=== PATIENT | female | born 1990 | race Caucasian/White ===

== ENCOUNTER 2018-08-16 15:07 | Emergency (ER) | payer SELFPAY ==
[2018-08-16 15:07] VITALS: BP 128/76; BP 139/79; PULSE 110; PULSE 97; RESP 16; RESP 18; TEMP 36.9; O2SAT 94; O2SAT 99; BMI 33.6
--- NOTE | 2018-08-16 15:19 | ED.VISSUMM ---
- ER Visit Summary Date of Service: 08/16/18 Chief Complaint: Abdominal pain and right ear pain History of Present Illness: The patient is a 28 F with right ear pain for the past couple of days. She had some mild sinus drainage. This morning she had nausea and vomiting followed by a rather severe epigastric pain. She had nausea, vomiting, and diarrhea all day today. She had some chills but no measured fever. Patient did have a cholecystectomy 2 years ago. She denies history of pancreatitis and rarely drinks alcohol, none recently. Physical Examination: Vital signs significant only for heart rate of 110. Patient's sitting upright in bed. She is uncomfortable but in no acute distress. Head neck examination reveals moist mucous membranes. Right external ear canal is erythematous and edematous consistent with otitis externa. Left ear canal is clear. Heart is regular rate and rhythm. Lungs sounds are clear. Abdomen is soft with tenderness in the epigastric region. No guarding or rebound. Hypoactive bowel sounds are noted throughout. Test Results: CBC was a white count of 14.5 with 94% neutrophils. Chemistry studies unremarkable. LFTs and lipase normal. test negative. CT abdomen pelvis with contrast shows a right ovarian cyst. Noninflamed appendix is noted. There is a very small appendicolith, but acute appendicitis is not suspected. Emergency Department Course and Treatment: Patient was given morphine, Zofran, IV fluids, and neomycin eardrops for her otitis externa. She was redosed with morphine and Zofran after repeat exam noted pain to be improving. Pain at this time remains all to be in the upper abdomen and she has no tenderness in the right lower quadrant. Patient be treated with Bentyl, Phenergan, and neomycin eardrops. Treatment Plan: [] Disposition: Discharge Impression: 1. Gastroenteritis 2. Right otitis externa This note was generated with [employer] dictation software. It may contain incorrect words, spelling, and punctuation that were not noted in review of the chart prior to signing ED Disposition - Plan for ED Patient: Chief Complaint: Abd Pain Referrals: Nathan Castellano MD [STAFF PHYSICIAN] -
[2018-08-16] MEDS: Ondansetron 4 MG/2 ML Vial IV ×2 (15:32→17:20)
[2018-08-16] MEDS: Morphine 4 MG/ML Syringe IV ×2 (15:32→17:20)
[2018-08-16] MEDS: 0.9% Normal Saline 1,000 ML 150 ML IV (15:32)
[2018-08-16] MEDS: Neomycin Sulfate/Polymyxin/Hc Susp 10 ML Bottle 4 DRP OTIC (15:56)
[2018-08-16 16:15] LABS: AST(SGOT) 18 U/L (15-37); Alanine Aminotransfer ALT/SGPT 29 U/L (13-56); Alkaline Phosphatase 90 U/L (45-117); Anion Gap 14 (5-15); BUN 11 mg/dL (7-18); BUN/Creat Ratio 12.3 RATIO (10-20); Bilirubin, Direct 0.25 mg/dL (0.00-0.30); Calcium,Total 9.3 mg/dL (8.5-10.1); Chloride 105 mmol/L (98-107); EST Glomerular Filtration Rate 80 mL/min (>60); Est Glom Filt Rate - Afr Amer 97 mL/min (>60); Estimated Creatinine Clearance 77.67 ml/min; Globulin 4.3 g/dL (2.2-4.2); Glucose 108 mg/dL (74-106); Lipase 72 U/L (73-393); Potassium 3.8 mmol/L (3.5-5.1); Protein, Total 8.3 g/dL (6.4-8.2); Sodium Level 139 mmol/L (136-145)
[2018-08-16 16:24] LABS: Absolute Lymphocyte Count 0.37 X10^3/ul (0.83-4.51); Absolute Neutrophil Count 13.7 X10^3/uL (2.0-7.7); Basophil# 0.01 X10^3/uL; Basophil% 0.1 % (0-1); Eosinophil# 0.01 X10^3/uL; Eosinophils% 0.1 % (0-5); Hematocrit 43.7 % (37-47); Hemoglobin 14.2 g/dl (12.0-15.0); Lymphocyte # 0.37 X10^3/ul (4.0); Lymphocyte % 2.5 % (19-41); Mean Corp Hgb Conc 32.5 g/gl (32-36); Mean Corpuscular Volume 86.2 fL (81-99); Mean Platelet Vol. 10.1 fl (6.2-12.0); Monocyte# 0.42 X10^3/uL; Monocyte% 2.9 % (0-10); Neutrophil % 94.2 % (47-70); Platelet Count 411 K/mm3 (150-450); RBC Distribution Width CV 13.1 % (11.6-14.6); RBC Distribution Width SD 40.3 fl (35.1-43.9); Red Blood Count 5.07 M/mm3 (4.2-5.4); White Blood Count 14.5 K/mm3 (4.4-11.0)
[2018-08-16 16:27] LABS: Pregnancy, Serum, hCG Quali. NEGATIVE Negative (0-9 Nonpreg)
[2018-08-16 16:37] LABS: Differential Indicated SCAN CRITERIA MET; POSITIVE COUNT NO; POSITIVE DIFFERENTIAL YES; POSITIVE MORPHOLOGY NO
--- NOTE | 2018-08-16 17:15 | CT_ITS ---
STUDY: CT ABDOMEN AND PELVIS WITH CONTRAST REASON FOR EXAM: Female, 28 years old. Elevated white count pain in abdomen RADIATION DOSAGE (If Supplied By Facility): CTDIvol = ( 14.11 ) mGy, DLP = ( 1180.89 ) mGycm TECHNIQUE: Transaxial images were obtained from the dome of the diaphragm to the symphysis pubis with oral contrast. 100ML ml of Isovue 300 contrast was administered. Sagittal and coronal images were reconstructed. Individualized dose optimization techniques were used for this CT. COMPARISON: January 15, 2017 CT scan abdomen and pelvis FINDINGS: The visualized lung bases are unremarkable. The visualized portions of the heart are within normal limits. Normal liver. There is non-visualization of the gallbladder, which may be secondary to either contraction or a prior cholecystectomy. There is borderline splenic enlargement or Normal pancreas. Normal bilateral adrenal glands. Normal right kidney. Normal left kidney. There is contrast in the stomach. Normal small intestine. Normal colon. There is a punctate calcific density within the normal size appendix. The width of the appendix is 3.4 mm which is within normal limits. This is newly visualized since prior study. The fluid that was seen in the right lower quadrant is smaller. Normal abdominal aorta. Normal inferior vena cava. There few nonspecific pericolonic lymph nodes. Normal urinary bladder. Normal visualized uterus. There is a small right ovarian cyst measuring 1.3 cm there is a lower uterine segment/cervical cystic structure measuring 1.1 cm stable since prior study suggesting a nabothian cyst. Normal abdominal wall. There are diffuse degenerative changes of the visualized lumbar spine.There is mild degenerative change in the thoracolumbar spine there is a broad disc bulge at L5-S1 with mild neural foramina narrowing. CT/Abdomen/Pelvis WITH Contrast IMPRESSION: Right ovarian cyst. Stable nabothian cysts. Could consider follow-up pelvic ultrasound. Nonvisualization of the gallbladder which may have been removed. Nonspecific bowel gas pattern. Noninflamed normal caliber appendix with a 1 mm appendicolith. Findings are doubtful for appendicitis. Hepatic steatosis. Electronically Signed: Nori Clark MD at 19:41 EST Tel , Service support ,
--- NOTE | 2018-08-16 19:17 | ED.RN ---
RECEIVED HANDOFF FROM KATHY.
[2018-08-16 19:20] VITALS: BP 119/67; PULSE 94; RESP 16; O2SAT 96
[2018-08-16] MEDS: proMETHazine 25 MG/ML Syringe 12.5 MG IV (19:29)
--- NOTE | 2018-08-16 20:51 | ED.DEP ---
ED Disposition - Plan for ED Patient: Disposition: Home or Assisted Living Chief Complaint: Abd Pain Instructions: ED Abdominal Pain Unkn Cause, ED Otitis Externa Prescriptions: Ondansetron [Zofran Odt] 4 mg PO Q8H PRN PRN #10 tablet PRN Reason: Nausea Dicyclomine HCl [Bentyl] 20 mg PO TIDAC PRN #20 capsule PRN Reason: Pain Referrals: Nathan Castellano MD [STAFF PHYSICIAN] - Additional Instructions: Use Neomycin ear drops to right ear. 4 drops 4x/day for 10 days.
[2018-08-16 21:03] VITALS: BP 124/78; PULSE 84; RESP 16; O2SAT 100
== END 2018-08-16 21:05 | disposition home or self-care (01) ==
PROVIDERS: Emergency Provider Emergency Medicine
DX: K52.9 Noninfective gastroenteritis and colitis, unspecified (principal); H60.91 Unspecified otitis externa, right ear; Z72.0 Tobacco use
CPT/HCPCS: 74177; 80048; 80076; 83690; 84703; 85025; 96361; 96374; 96375; 96376; 99283; J7030; J7040; Q9967; J2405

== ENCOUNTER 2019-05-23 08:31 | Emergency (ER) | payer SELFPAY ==
[2019-05-23 08:32] VITALS: BP 169/100; PULSE 124; RESP 20; TEMP 37.2; O2SAT 97; BMI 38.2
--- NOTE | 2019-05-23 08:34 | US_ITS ---
STUDY: SECOND AND THIRD TRIMESTER OBSTETRICAL ULTRASOUND - LIMITED REASON FOR EXAM: Female, 29 years old abnormal vaginal bleeding and a pelvic cramping. Patient is . LMP: January 12, 2019 PRIOR ULTRASOUND: Prior comparison studies are not available for review at this time. TECHNIQUE: Transabdominal and Transvaginal. Transvaginal imaging was performed to visualize the cervix. TECHNICAL QUALITY: Adequate. FINDINGS: There is a single intrauterine fetus. The fetus is in a cephalic presentation. There is demonstrated cardiac activity with a heart rate of 155 bpm. There is decreased amniotic fluid volume consistent with oligohydramnios. The largest amniotic fluid pocket measures 1.3 cm. The amniotic fluid index (SALBADOR) is 3.2 cm. The placenta is posterior in location and is not low lying. There are Grade 1 placental changes. The cervix measures greater than 3.5 cm in length. BIOMETRY: BPD: 3.8 cm: 17 weeks, 5 days HC: 15.0 cm: 18 weeks, 1 days AC: 13.1 cm: 18 weeks, 5 days FL: 3 cm: 19 weeks, 2 days Age by LMP: 18 weeks, 5 days. PAM by LMP: October 19, 2019. age by current US: 18 weeks, 4 days. PAM by current US: October 19, 2019. Estimated weight: 258 grams, +/- 38 grams, 51 percentile. Gender: Indeterminant US/OB Limited With Biometrics IMPRESSION: 1. Oligohydramnios. 2. Single living intrauterine gestation with estimated gestational age by size of 18 weeks 4 days. Electronically Signed: Shaista Zuniga MD at 11:16 EDT , Service support ,
--- NOTE | 2019-05-23 08:41 | ED.DCSUM_ITS ---
- ER Visit Summary Date of Service: 05/23/19 Chief Complaint: Vaginal bleeding, possible miscarriage History of Present Illness: The patient is a 29 F who presents with vaginal bleeding that began this morning. Patient states she was sitting on a couch when she felt some vaginal bleeding. Patient states it got progressively worse. Patient states her bleeding was very severe. Patient states she was having some cramping. Currently, patient admits to some mild cramping. Patient states she is approximately 19 weeks . Patient follows with [facility] ADJUNCT PROFESSOR. Patient states her blood type is A negative. Physical Examination: Vital signs showed an elevated blood pressure 169/100, tachycardia of 124, respiratory rate of 20, pulse ox of 97% on room air. Patient is afebrile. Oral mucosa is pink and moist. Neck is supple. Trachea is midline. Heart was regular rate and rhythm. Lungs are clear and equal bilaterally. Abdomen is soft. Bowel sounds are normal. There is no tenderness. There is no guarding. Cranial nerves II through XII are intact. There are no focal motor or sensory deficits noted. Test Results: ECG shows a leukocytosis of 20.2. Hemoglobin was 11.9 and hematocrit was 36.9. Platelets are slightly increased at 500. Quantitative hCG was 7578 type and Rh with a negative. Pelvic ultrasound shows oligohydramnios and a single intrauterine gestation of 18 weeks 4 days. Emergency Department Course and Treatment: Patient was given IV fluids and morphine here. Patient was given Zofran. Patient was feeling better on reevaluation. Case was discussed with Cecelia Hightower from [facility] ADJUNCT PROFESSOR. She recommended pelvic rest and will follow up with the patient next week. Patient was instructed to follow-up in 3 to 5 days. Patient was instructed on signs and symptoms which should prompt return to the emergency department. Patient was instructed to return if worse in any way. Patient and family understood and were agreeable with the plan. All questions were answered. Disposition: Discharge home Impression: Threatened miscarriage This note was generated with [employer] software. It may contain incorrect words, spelling, and punctuation that were not noted in review of the chart prior to signing ED Disposition - Plan for ED Patient: Disposition: Home or Assisted Living Diagnosis: Threatened miscarriage Instructions: POSSIBLE MISCARRIAGE (Threatened ) Referrals: Care Physician,No Primary [Primary Care Provider] - Hightower,Cecelia, CNM [Certified Nurse Jitterbug Operator] - 3-5 Days
[2019-05-23] MEDS: 0.9% Normal Saline 1,000 ML 1000 ML IV (08:44)
[2019-05-23 08:45] LABS: Absolute Lymphocyte Count 3.24 X10^3/uL (0.83-4.51); Basophil# 0.08 X10^3/uL; Basophil% 0.4 % (0-1); Eosinophil# 0.37 X10^3/uL; Eosinophils% 1.8 % (0-5); Hematocrit 36.9 % (37-47); Hemoglobin 11.9 g/dL (12.0-15.0); Lymphocyte # 3.24 X10^3/ul (4.0); Lymphocyte % 16.1 % (19-41); Mean Corp Hgb Conc 32.2 g/dL (32-36); Mean Corpuscular Hgb 28.3 pg (27.0-32.0); Mean Corpuscular Volume 87.9 fL (81-99); Mean Platelet Vol. 9.6 fl (6.2-12.0); Monocyte# 0.97 X10^3/uL; Monocyte% 4.8 % (0-10); NRBC Flagged by Analyzer 0 % (0-5); Neutrophil # 15.02 X10^3/uL (2.7-7.7); Neutrophil % 74.5 % (47-70); Platelet Count 500 K/mm3 (150-450); RBC Distribution Width CV 13.2 % (11.6-14.6); RBC Distribution Width SD 41.7 fl (35.1-43.9); White Blood Count 20.2 K/mm3 (4.4-11.0)
[2019-05-23] MEDS: Morphine 4 MG/ML Syringe IV (09:08)
[2019-05-23] MEDS: Ondansetron 4 MG/2 ML Vial IV (09:19)
[2019-05-23 09:32] LABS: hCG Titer Quant., Serum 7578 mIU/mL (1-3)
[2019-05-23 11:06] VITALS: RESP 18; O2SAT 97
[2019-05-23 12:55] VITALS: BP 149/80; PULSE 98; RESP 14; TEMP 36.8; O2SAT 98
== END 2019-05-23 14:05 | disposition home or self-care (01) ==
PROVIDERS: Emergency Provider Emergency Medicine
DX: O20.0 Threatened abortion (principal); O99.342 Other mental disorders complicating pregnancy, second trimester; F32.9 Major depressive disorder, single episode, unspecified; Z3A.18 18 weeks gestation of pregnancy; Z79.899 Other long term (current) drug therapy
CPT/HCPCS: 76816; 84702; 85025; 86850; 86900; 86901; 90384; 96361; 96374; 96375; 99284; J7030; A4216; J2405; J2790

== ENCOUNTER 2019-05-24 17:03 | Emergency (ER) | payer SELFPAY ==
[2019-05-23 08:32] VITALS: BMI 38.2
[2019-05-24 17:07] VITALS: BP 162/88; PULSE 144; RESP 18; TEMP 36.9; O2SAT 99; BMI 37.1
[2019-05-24] MEDS: Ondansetron 4 MG/2 ML Vial IV (17:21)
[2019-05-24] MEDS: 0.9% Normal Saline 1,000 ML 1000 ML IV (17:22)
[2019-05-24] MEDS: Morphine 4 MG/ML Syringe IV (17:22)
[2019-05-24 17:24] VITALS: BP 155/90; PULSE 121; RESP 24; O2SAT 100
--- NOTE | 2019-05-24 17:25 | PLAC_PTH ---
PATIENT: RAVEN JUAREZ LOC: ED U#:[id number] AGE/SX: 29/F ROOM: RE05/24/[address]: Dr. Dinora Rodriguez MD : 1990 BED: DIS: 05/24/2019 SPEC #: [id number] RECD: 05/24/19 18:31 STATUS: ARNULFO LEEANNE #: [id number] REX: 05/24/19 17:[address]: Dinora Rodriguez DEPT: SURGICAL PATHOLOGY RECD BY: Rasheed Ruiz ENTERED: 05/26/19 09:22 SP TYPE: PLACENTA OTHR DR: No Primary Care Phys Tissues: Placenta, NOS Procedures: Surgery Specimen Level V HEADER OPERATION: Complete at 18 weeks and 6 days PRE-OP DIAGNOSIS: Complete at 18 weeks and 6 days TISSUE SUBMITTED: Placenta MICROSCOPIC DIAGNOSIS James placenta (250 gm): Umbilical cord - trivascular with no inflammation. Placental membranes - acute chorioamnionitis and acute deciduitis. Placental disc - organizing intraparenchymal hemorrhage, acute deciduitis and increased intraparenchymal fibrin plaques. AM:vijay 05/27/19 MICROSCOPIC DESCRIPTION Slides are reviewed. GROSS DESCRIPTION SPECIMEN: PLACENTA / CLINICAL INFORMATION: A. Weight: Not noted B. Gestational Age: 18 weeks and 6 days C. Sex: Not noted PLACENTAL WEIGHT (POST FIXATION): 250 gm PLACENTAL DIMENSIONS: 13 x 8 x 2.5 cm PLACENTAL SHAPE: Usual ovoid PLACENTAL WEIGHT FOR GESTATIONAL AGE: Within 10-99th percentile MEMBRANES - Present A. Insertion: Marginal B. Site of rupture from edge: 4 cm from edge of placental disc C. Color of membrane: Hare-brooks D. Abnormalities: None UMBILICAL CORD - Present A. Color: Hare-brooks B. Insertion: Centrally inserted and appears to be macerated C. Length: 17 cm D. Diameter: 0.5 to 2 cm E. Number of vessels: Three F. Abnormalities: None PLACENTAL DISC - Present A. Color of surface: Hare-brooks B. surface abnormalities: None C. Maternal cotyledons: Intact with minimal tears D. Attached retro placental clot: No clot E. Cut surface: Dark red and spongy F. Lesions: None G. Separate clot: Absent One-third of the placenta, both maternal and surface, shows hemorrhagic cut surfaces. The rest of the placenta shows pale, pink cut surfaces. SECTIONS SUBMITTED: 1. Membrane roll 2. Cord, end inked red 3. Placental disc, and maternal surfaces, area of hemorrhage 4. Placental disc, and maternal surfaces, area of hemorrhage 5. Placental disc, and maternal surfaces 6. Placental disc, and maternal surfaces GLENN:vijay 05/26/19 TC:2 CPT: 51724
--- NOTE | 2019-05-24 17:40 | ED.DCSUM_ITS ---
- ER Visit Summary Date of Service: 05/24/19 Chief Complaint: Pelvic cramping and History of Present Illness: The patient is a 29 F presenting with pelvic cramping. Patient was seen in the ED yesterday for vaginal bleeding and . She had an ultrasound performed at that time which showed IUP 18 weeks 4 days. Patient states she continued to bleed at home yesterday. States the bleeding slowed down today to spotting. She states 4 hours prior to arrival she started having severe pelvic cramping that was intermittent. She states when she arrived to the hospital it worsened. She is G1, P0. Blood type is A negative and was given RhoGam yesterday. Physical Examination: Vitals are stable. Patient is afebrile. Alert moderate acute distress. HEENT exam is unremarkable. Neck is supple. Lungs are clear and equal bilaterally. Heart is regular tachycardic Abdomen is soft suprapubic tenderness Extremities are unremarkable. Skin is warm and dry. Remainder of exam is unremarkable. Emergency Department Course and Treatment: On arrival patient was given morphine, Zofran IV. Her pain worsened. She spontaneously delivered fetus in breech position. She then developed nausea and vomiting. Placenta was delivered without difficulty. Discussed with Dr. Hui and Cecelia Hightower. Patient was evaluated by Cecelia Hightower in the ED. She was observed in the ED. Repeat blood pressure 135/69, heart rate 99. Patient feels comfortable with discharge home. She will follow-up with her MEDIA PLANNER as directed. Disposition: Discharge home Impression: Completed miscarriage This note was generated with [employer] dictation software. It may contain incorrect words, spelling, and punctuation that were not noted in review of the chart prior to signing ED Disposition - Plan for ED Patient: Prescriptions: Doxycycline 100 mg PO BID 7 Days #14 cap Referrals: Care Physician,No Primary [Primary Care Provider] -
--- NOTE | 2019-05-24 17:46 | OB.TRI.NOTE ---
- Problem List (1) Complete Status: Acute History of Present Illness Date of Service: 05/24/19 Was patient seen by the physician?: Yes Reason For Visit: PREG Date of Service: 05/24/19 History of Present Illness: 29 year old at 18w6d with PAM:10/19/19, presented to ER with complaints of abdominal pain/cramping. Was seen in ER yesterday for vaginal bleeding and viable at that time. Since yesterday, bleeding scant spotting, no leakage of fluid and no further cramping. Around 1400 today started to have pelvic/abdominal cramping. After PO hydration cramping decreased but then returned a few hours later and instructed to come to ER. Upon arrival cramping every 2 minutes, increased intensity. Non viable fetus delivered at 1712 by . Spontaneous delivery of placenta at 1725. I arrived after delivery of fetus and placenta. Allergies nickel Allergy (Verified 05/23/19 08:37) Rash Review of Systems Constitutional: Reports: Chills, Fever - Temp 99.8 at home Eyes: Denies: Blurred vision Cardiovascular: Denies: Chest Pain, Palpitations Respiratory: Denies: Cough, Shortness of breath at rest, Sputum production Gastrointestinal: Reports: Abdominal Pain, Nausea, Vomiting. Denies: Diarrhea Genitourinary: Denies: Dysuria, Frequency, Hematuria, Urgency Neurological: Denies: Numbness, Tingling, Focal weakness Physical Exam Vitals: Vital Signs Temp Pulse Resp BP Pulse Ox 98.4 F 121 H 24 H 155/90 H 100 05/24/19 17:07 05/24/19 17:24 05/24/19 17:24 05/24/19 17:24 05/24/19 17:24 General: Alert, Oriented x3, - - acute distress due to recent loss. HEENT: Atraumatic, Normocephalic BLEACH SUPERVISOR: Normal external genitalia - Hemostatis achieved. Placenta inspected and intact. Impression/Plan A:Complete P: 1) CMP,CBC, coag studies. WBC 30. Afebrile. HR 121 decreasing after fluid bolus and delivery. BP elevated upon arrival, decreasing after delivery. Will follow up next week. Patient instructed if fever, aches, chills or signs of illness to call and not to wait till next week. 2) Doxycycline 100mg PO BID x 7 days 3) Observation in ER for 2 post delivery. As long as stable, may go home if she desires. 4) notified of patient status and agrees with plan at this time. 5) Rhogam given yesterday in ER. Will order KB test today. 6) Unsure if patient wants any testing at this time. 5) Follow up in office in 1 week.
[2019-05-24 17:51] LABS: Absolute Lymphocyte Count 3.11 X10^3/uL (0.83-4.51); Absolute Neutrophil Count 25.4 X10^3/uL (2.0-7.7); Basophil# 0.08 X10^3/uL; Basophil% 0.3 % (0-1); Eosinophil# 0.09 X10^3/uL; Eosinophils% 0.3 % (0-5); Hematocrit 31.5 % (37-47); Hemoglobin 10.3 g/dL (12.0-15.0); Lymphocyte # 3.11 X10^3/ul (4.0); Lymphocyte % 10.1 % (19-41); Mean Corp Hgb Conc 32.7 g/dL (32-36); Mean Corpuscular Hgb 28.8 pg (27.0-32.0); Mean Platelet Vol. 9.9 fl (6.2-12.0); Monocyte# 1.82 X10^3/uL; Monocyte% 5.9 % (0-10); NRBC Flagged by Analyzer 0 % (0-5); Neutrophil # 25.35 X10^3/uL (2.7-7.7); Neutrophil % 81.9 % (47-70); POSITIVE COUNT YES; POSITIVE DIFFERENTIAL YES; Platelet Count 562 K/mm3 (150-450); RBC Distribution Width CV 13.1 % (11.6-14.6); Red Blood Count 3.58 M/mm3 (4.2-5.4)
[2019-05-24 18:00] VITALS: BP 152/81; PULSE 120; RESP 22; O2SAT 98
[2019-05-24 18:02] LABS: International Normalized Ratio 1.1; Prothrombin Time (Protime)PT. 13.6 SECONDS (11.7-14.9)
[2019-05-24 18:03] LABS: Fibrinogen 687 mg/dl (203-444)
[2019-05-24 18:06] LABS: ALB/GLOB Ratio 0.6 RATIO (0.9-2.4); AST(SGOT) 13 U/L (15-37); Alanine Aminotransfer ALT/SGPT 20 U/L (13-56); Albumin, Serum 2.9 g/dL (3.2-5.0); Alkaline Phosphatase 120 U/L (45-117); Anion Gap 14 (5-15); BUN 6 mg/dL (7-18); BUN/Creat Ratio 7.3 RATIO (10-20); Calcium,Total 9.3 mg/dL (8.5-10.1); Chloride 104 mmol/L (98-107); Creatinine, Serum 0.82 mg/dL (0.55-1.02); Differential Indicated SCAN CRITERIA MET; EST Glomerular Filtration Rate 88 mL/min (>60); Est Glom Filt Rate - Afr Amer 106 mL/min (>60); Globulin 4.6 g/dL (2.2-4.2); Glucose 103 mg/dL (74-106); Potassium 3.6 mmol/L (3.5-5.1); Protein, Total 7.5 g/dL (6.4-8.2); Sodium Level 137 mmol/L (136-145)
[2019-05-24 18:08] LABS: White Blood Count 30.9 K/mm3 (4.4-11.0)
[2019-05-24 18:30] VITALS: BP 151/91; PULSE 108; RESP 16; O2SAT 98
[2019-05-24 19:05] LABS: Anisocytosis RARE; Differential Comment SEE COMMENTS; Platelet Estimate MOD INC (ADEQ)
[2019-05-24 19:06] LABS: Macrocytosis RARE; Red Cell Morphology N CHROM NORMAL (NORM C&C)
[2019-05-24] MEDS: Doxycycline 100 MG CAPSULE PO (19:18)
[2019-05-24 19:31] VITALS: BP 144/81; PULSE 109; RESP 18; TEMP 37; O2SAT 100
[2019-05-24 19:40] LABS: Pathology Specimen OB SEE PATHOLOGY REPORT
--- NOTE | 2019-05-24 20:34 | ED.DEP ---
ED Disposition - Plan for ED Patient: Instructions: Miscarriage Prescriptions: Doxycycline 100 mg PO BID 7 Days #14 cap Referrals: Cecelia Hightower CNM [Certified Nurse Duplication Specialist] -
[2019-05-24 21:00] VITALS: BP 136/91; PULSE 100; RESP 18
--- NOTE | 2019-05-25 11:38 | ED.RN ---
CALLED AND STATED THAT HE ARRIVED AT [facility] TO [facility] [employer] PATIENT'S PRESCRIPTION AND IT WAS NOT THERE AND THEY DID NOT HAVE ANY INFORMATION REGARDING HER RX. DR. LOJA MADE AWARE AND CALLS PRESCRIPTION FOR DOXYCYCLINE 100 MG X7 DAYS. TOLD TO CALL BACK IF THERE WAS ANY FURTHER ISSUE.
[2019-05-25 15:32] LABS: Kleihauer-Betke Negative
[2019-05-26 12:25] LABS: Pathologist Review Reviewed
== END 2019-05-24 21:10 | disposition home or self-care (01) ==
PROVIDERS: Advanced Practice Midwife; Emergency Provider Emergency Medicine
DX: O03.9 Complete or unspecified spontaneous abortion without complication (principal)
CPT/HCPCS: 80053; 85025; 85384; 85460; 85610; 85730; 88307; 96361; 96374; 96375; 99284; J7030; A4216; J2405

== ENCOUNTER 2020-02-16 13:25 | Inpatient (IN) | payer SELFPAY ==
[2020-02-16] VITALS (27 sets, daily range): BP systolic 104–130; BP diastolic 56–83; PULSE 38–106; TEMP 35.9–36.8; O2SAT 79–100; BMI 37.4
[2020-02-16] MEDS: Lactated Ringers 1,000 ML 999 ML IV (13:09)
[2020-02-16] MEDS: fentaNYL 100 MCG/2 ML Ampul 50 MCG IV (13:33)
--- NOTE | 2020-02-16 13:33 | OB.TRI.HP_ITS ---
- Problem List (1) with 21 completed weeks gestation Status: Acute (2) Spontaneous miscarriage Status: Acute (3) Prior miscarriage with in first trimester, antepartum Status: Acute History of Present Illness Date of Service: 02/16/20 Was patient seen by the physician?: Yes Reason For Visit: DEMISE Date of Service: 02/16/20 Final PAM: 06/25/20 Gestational age: 21 Weeks and 3 Days History of Present Illness: Patient is a at 21.3 weeks gestation that arrived to triage for vaginal bleeding and increased cramping. Started cramping yesterday and it has increased today. Had episode of bright red vaginal bleeding today at home and came into triage. Allergies nickel Allergy (Verified 05/23/19 08:37) Rash Review of Systems Eyes: Denies: Blurred vision HEENT: Denies: Head Aches Cardiovascular: Denies: Chest Pain Gastrointestinal: Reports: Abdominal Pain Genitourinary: Denies: Dysuria Neurological: Denies: Blurred vision Psychiatric: Reports: Anxiety, Depression Physical Exam Vitals: Vital Signs Temp Pulse BP Pulse Ox 96.7 F L 106 H 118/64 98 02/16/20 12:38 02/16/20 12:38 02/16/20 12:38 02/16/20 12:38 General: Alert, Oriented x3 HEENT: Atraumatic Cardiovascular: Regular rate Lungs: Clear to auscultation, Normal air movement Abdomen: Bowel Sounds Present, Non Tender, Obese Neurological: Cranial nerves II-XII grossly intact ENGINEER TECHNICIAN: Normal external genitalia - SSE shows buldging membranes in vagina Impression/Plan at 21.3 weeks gestation cramping and vaginal bleeding SSE shows buldging membranes in vagina Spontaneous Admit to labor and delivery Pain medication as needed Anticipate delivery Dr. Aguilar notified and agrees with plan of care
[2020-02-16 13:37] LABS: Absolute Lymphocyte Count 1.91 X10^3/uL (0.83-4.51); Absolute Neutrophil Count 13.7 X10^3/uL (2.0-7.7); Basophil# 0.05 X10^3/uL; Basophil% 0.3 % (0-1); Eosinophil# 0.24 X10^3/uL; Eosinophils% 1.4 % (0-5); Hematocrit 33.5 % (37-47); Hemoglobin 10.8 g/dL (12.0-15.0); Lymphocyte # 1.91 X10^3/ul (4.0); Lymphocyte % 11.2 % (19-41); Mean Corp Hgb Conc 32.2 g/dL (32-36); Mean Corpuscular Hgb 27.7 pg (27.0-32.0); Mean Corpuscular Volume 85.9 fL (81-99); Mean Platelet Vol. 9.8 fl (6.2-12.0); Monocyte# 0.96 X10^3/uL; Monocyte% 5.6 % (0-10); NRBC Flagged by Analyzer 0 % (0-5); Neutrophil # 13.69 X10^3/uL (2.7-7.7); Neutrophil % 80.5 % (47-70); Platelet Count 475 K/mm3 (150-450); RBC Distribution Width CV 13.3 % (11.6-14.6); RBC Distribution Width SD 41.2 fl (35.1-43.9)
[2020-02-16 13:45] LABS: Prothrombin Time (Protime)PT. 12.8 SECONDS (11.7-14.9)
[2020-02-16 13:46] LABS: Partial Thromboplast Time 27.9 Seconds (24.1-36.2)
[2020-02-16 14:05] LABS: ALB/GLOB Ratio 0.6 RATIO (0.9-2.4); AST(SGOT) 14 U/L (15-37); Alanine Aminotransfer ALT/SGPT 24 U/L (13-56); Albumin, Serum 2.7 g/dL (3.2-5.0); Alkaline Phosphatase 126 U/L (45-117); Anion Gap 11 (5-15); BUN 7 mg/dL (7-18); BUN/Creat Ratio 11.8 RATIO (10-20); Calcium,Total 9.1 mg/dL (8.5-10.1); Chloride 108 mmol/L (98-107); Creatinine, Serum 0.59 mg/dL (0.55-1.02); EST Glomerular Filtration Rate 128 mL/min (>60); Est Glom Filt Rate - Afr Amer 154 mL/min (>60); Estimated Creatinine Clearance 122.59 ml/min; Globulin 4.7 g/dL (2.2-4.2); Glucose 75 mg/dL (74-106); Potassium 3.7 mmol/L (3.5-5.1); Protein, Total 7.4 g/dL (6.4-8.2); Sodium Level 139 mmol/L (136-145)
--- NOTE | 2020-02-16 14:06 | PCM.PN.BLA ---
Progress Note She was evaluated with nurse configuration technician. Patient appears very uncomfortable. She notes cramping, contractions, vaginal bleeding. Transabdominal ultrasound performed. Viable fetus noted in vertex presentation. + heart tones noted. +Gross movement of baby. Subjectively normal fluid around baby. Cervix appears to be dilated but difficult to obtain accurate measurement using transabdominal probe. Membranes noted to be bulging into the vagina with the umbilical cord prolapsed through the cervix and into the vagina. Discussed with patient likely delivery with loss of baby. Will place patient in reverse Trendelenburg and recheck for heart tones. Will discuss epidural for pain control. STROKE Vital Signs/Narrative: Vital Signs Temp Pulse BP Pulse Ox 02/16/20 12:38 96.7 F L 106 H 118/64 98
[2020-02-16] MEDS: Lactated Ringers 1,000 ML 200 ML IV ×2 (14:31→20:12)
[2020-02-16] MEDS: fentaNYL 100 MCG/2 ML Ampul IV (14:48)
[2020-02-16] MEDS: Ondansetron 4 MG/2 ML Vial IV (14:57)
[2020-02-16] MEDS: Lactated Ringers 500 ML 999 ML IV (15:36)
[2020-02-16] MEDS: fentaNYL-bupivacaine (epidural) 100 ML BAG EPIDURAL ×2 (15:55→21:13)
--- NOTE | 2020-02-16 18:49 | PCM.PN.BLA ---
Progress Note At bedside to evaluate patient. She became more uncomfortable with contractions and had additional vaginal bleeding, therefore she got an epidural for pain control. She is now comfortable with an epidural. TAUS performed- there is gross movement, there is grossly less fluid around baby, +FHT, no visible cervix to measure. Discussed US findings with patient and her . Reviewed concern for underlying infection. Discussed likely delivery. Discussed Trendelenburg position overnight, and will need to re-assess in the AM for possible transfer for cerclage but discussed that this seems unlikely. Reviewed that baby is not viable at this gestational age. Discussed will need to re-examine if fevers, chills, pressure, pain, increased bleeding. Discussed plan of care with Dr. Hodge for a second opinion. Also discussed plan of care and patient with Dr. Nabor BOLIVAR. STROKE Vital Signs/Narrative: Vital Signs Temp Pulse BP Pulse Ox 02/16/20 18:05 78 118/70 02/16/20 18:04 97.0 F L 80 100 02/16/20 16:51 97.0 F L 87 114/56 L 99 02/16/20 16:20 96.7 F L 77 114/56 L 02/16/20 16:16 78 98 02/16/20 16:15 78 110/59 L 02/16/20 16:11 82 98 02/16/20 16:10 81 118/59 L 02/16/20 16:06 85 98 02/16/20 16:05 80 117/57 L 02/16/20 16:01 77 98 02/16/20 16:00 88 121/65 H 02/16/20 15:56 38 L 79 02/16/20 15:55 96 119/73 02/16/20 15:50 97 126/82 H 97 02/16/20 15:45 105 H 128/83 H 97 02/16/20 15:40 97 98 02/16/20 15:35 85 130/81 H
[2020-02-16] MEDS: Acetaminophen 325 MG Tablet PO (20:12)
--- NOTE | 2020-02-16 20:19 | PCM.HP.OB ---
- Problem List (1) with 21 completed weeks gestation Status: Acute (2) Prior miscarriage with in first trimester, antepartum Status: Acute (3) labor Status: Acute Qualifiers: labor trimester: second trimester Fetus number: single or unspecified fetus (4) Chronic hypertension affecting Status: Chronic (5) Obesity Status: Acute History Date of Admission: 01/09/17 Final PAM: 06/25/20 Gestational age: 21 Weeks and 3 Days History of this : This is a 29 year-old, G [2], P [0], at 21.3 weeks gestational age that presents with contractions and vaginal bleeding. Started feeling cramping yesterday and has increased in frequency and intensity today. Went to bathroom this morning and had bright red vaginal bleeding. Patient has history of IUFD at 19 weeks gestation on 05/24/2019. Unsure if she is feeling any movement. This complicated by chronic hypertension, obesity, history of marijuana use, and depression Allergies nickel Allergy (Verified 05/23/19 08:37) Rash Home Medications: Home Medications Fluoxetine HCl [Prozac] 40 mg PO DAILY 05/23/19 No122/Iron/Folic Acid [ Multi Tablet] 1 ea PO DAILY 05/23/19 Aspirin [Aspirin, Baby] 81 mg PO DAILY@0800 02/16/20 Labetalol [Trandate] 100 mg PO BID 02/16/20 Smoking Status: Former smoker Substance Use Type: Marijuana - Use prior to , quit when found out in 10/2019, Anxiety Medications Number of Fetus(es): 1 History Past Pregnancies: Past Pregnancies Delivery Date Name GA/ Weeks Outcome Route Wt Infant Sex Labor Length Anesthesia Delivery Location Provider FOB Labs: A negative Rubella immune HB negative Hep C negative HIV NR RPR NR GC/Ch negative Expected Delivery Method: Spontaneous Vaginal Review of Systems Eyes: Denies: Blurred vision Cardiovascular: Denies: Chest Pain Respiratory: Denies: Cough, Shortness of Breath Gastrointestinal: Reports: Abdominal Pain - Contractions Genitourinary: Denies: Dysuria, Frequency Musculoskeletal: Reports: Back Pain Neurological: Denies: Headaches Psychiatric: Reports: Anxiety, Depression - Currently on medication Physical Exam Vitals: Vital Signs Temp Pulse BP Pulse Ox 97.0 F L 90 115/68 98 02/16/20 18:04 02/16/20 20:09 02/16/20 20:08 02/16/20 20:09 General: Alert, Oriented x3 Cardiovascular: Regular rate Lungs: Clear to auscultation, Normal air movement Abdomen: Soft, Non Tender, Gravid, Obese Neurological: Cranial nerves II-XII grossly intact LIGHT INDUSTRIAL SUPERVISOR: Normal external genitalia Presentation: Unable to assess - Buldging membranes present in vagina Assessment/Plan All Active Problems Complete (Acute) with 21 completed weeks gestation (Acute) Prior miscarriage with in first trimester, antepartum (Acute) labor (Acute) Obesity (Acute) This is a 29 year-old, G [2], P [0, at 21.3 weeks gestational age that presents for contractions and vaginal bleeding Prior 19 week IUFD on 05/31/2019 SSE completed and bulging membranes visible in vagina. Moderate amount of bright red blood in vagina. Unable to determine cervical dilation FHT -120bpm via doppler Plan: Admit to labor and delivery Bedside US STAT Routine labs IV fluids Rhogam IM Anticipate delivery Dr. Aguilar in route to assess
[2020-02-16] MEDS: Labetalol 100 MG Tablet PO (21:13)
[2020-02-17] VITALS (28 sets, daily range): BP systolic 99–144; BP diastolic 59–85; PULSE 70–105; RESP 14; TEMP 36.1–36.7; O2SAT 97–99
[2020-02-17] MEDS: Lactated Ringers 1,000 ML 200 ML IV ×3 (01:17→06:18)
[2020-02-17] MEDS: fentaNYL-bupivacaine (epidural) 100 ML BAG EPIDURAL (03:33)
--- NOTE | 2020-02-17 06:56 | PCM.PN.BLA ---
Progress Note At bedside to evaluate patient. She is comfortable with an epidural but continues to have vaginal bleeding. TAUS shows minimal fluid around fetus, +gross movement of fetus, +FHT, vertex presentation, cervix is visually dilated with bulging membranes. Vag exam with taut and bulging membranes to just inside the introitus with a moderate amount of bleeding on exam. Membranes have progressed further. Discussed with Dr. Willis with M. Cerclage and transfer are not indicated at this time. Will take patient out of reverse Trendelenburg. Anticipate delivery today given continued moderate bleeding, and the membranes have progressed farther. Discussed plan with patient and her and they are comfortable with the plan. All questions answered. Discussed prophylactic cerclage ~13 wks gestation with next . Will also recheck CBC w/ diff given concern for infection with leukocytosis. STROKE Vital Signs/Narrative: Vital Signs Temp Pulse BP Pulse Ox 02/17/20 05:35 85 110/59 L 02/17/20 04:24 97.0 F L 71 110/59 L 99 02/17/20 03:28 73 114/65 02/17/20 03:27 97.0 F L 73 99 02/17/20 03:26 70 99
--- NOTE | 2020-02-17 08:32 | PCM.OPRPT ---
Vaginal Delivery Maternal Presentation: - - labor 21 weeks, bulging membranes Amniotic Membrane Rupture Type: Spontaneous Amniotic Fluid Description: Clear Final PAM: 06/25/20 Final PAM Source: US <20 weeks Gestational age: 21 Weeks and 4 Days Date of Procedure: 02/17/20 Pre-Operative Diagnosis: labor, bulging membranes, 21.4 wks Post-Operative Diagnosis: same, female Surgery/ Procedure Performed: Spontaneous Vaginal Delivery Type of Anesthesia: Epidural Description of Procedure: was called to room- felt she passed something. Fetus and membranes delivered (0830). No signs of life appreciated at delivery. Cord was clamped and cut. Pitocin started. Will continue expectant mgmt for placenta delivery. Placenta did delivery spontaneously and intact at 1155 Placenta Disposition: anora testing Cord Vessel Description: 3 Vessels Cord Entanglement: None Drain: Patel to straight drain Estimated Blood Loss: 50 A gender: Female (1 minute): 0 (5 minute): 0 Episiotomy Description: None Laceration: None Medications given after delivery: IV Pitocin Complications: None
[2020-02-17] MEDS: Oxytocin 30 units/NS 500 ml 30 UNITS/500 ML IV.SOLN 334 UNITS IV (08:40)
[2020-02-17] MEDS: Labetalol 100 MG Tablet PO (10:28)
[2020-02-17] MEDS: Acetaminophen 325 MG Tablet PO (11:07)
[2020-02-17] MEDS: HYDROmorphone 0.5 MG/0.5 ML SYRINGE IV (11:49)
[2020-02-17] MEDS: 0.9% Saline Lock 10 ML Syringe IV ×2 (11:50→11:56)
--- NOTE | 2020-02-17 12:27 | DCINST_ITS ---
Discharge Diet: No Restrictions Discharge Activity: Return to Normal Activity, May not drive while taking narcotic pain medications., May Shower May resume sexual activity in: 4 weeks Additional Activity Instructions:: Nothing in the vagina for 4-6 weeks. You may return to work/school in 6 weeks. Call your doctor if your incision/area has: Continuous Slow Oozing, Sudden Increased Bleeding, Increased Pain/ Swelling, Increased Redness, Foul Smelling Discharge Call your doctor if you observe: Fever of 101 or Higher, Using more than one pad per hour Additional Instructions: If you experience any of the following, contact your healthcare provider. * Bleeding that soaks a pad every hour for 2 hours * Fever 100.4 or higher * Unrelieved incision or abdominal pain * Swelling, redness, discharge or bleeding from your incision or episiotomy site * Your incision begins to separate * Problems urinating (including inability to urinate or burning while urinating). * Visual changes * Severe headache * Flu-like symptoms * Pain or redness in one of both of your breasts * Pain, warmth, tenderness or swelling in your legs, especially the calf area * Frequent nausea and vomiting * Symptoms of depression or anxiety If you experience any of the following, call 911 or go to the nearest Emergency Room. * Chest pain * Problems breathing * Seizure activity * Partial or complete paralysis of a body part, slurred speech, weakness or drooping of the face, or a sudden inability to walk or hold your balance Allergies/Adverse Reactions: Allergies nickel Allergy (Verified 05/23/19 08:37) Rash Medications to take at Discharge Fluoxetine HCl [Prozac] 40 mg PO DAILY 05/23/19 No122/Iron/Folic Acid [ Multi Tablet] 1 ea PO DAILY 05/23/19 Labetalol [Trandate] 100 mg PO BID 02/16/20 ALPRAZolam [Xanax] 0.5 mg PO TID #30 tablet 02/17/20 Acetaminophen [Tylenol Tablet] 325 - 650 mg PO Q4H PRN PRN #30 tab 02/17/20 Ibuprofen [Motrin] 600 mg PO Q6H PRN PRN #60 tab 02/17/20 Labetalol [Trandate (Beta Tanya)] 100 mg PO BID tablet 02/17/20 The following prescriptions were given: Ibuprofen [Motrin] 600 mg PO Q6H PRN PRN #60 tab PRN Reason: Pain Or Fever Transmission Status: Pending to [facility] [id number] Acetaminophen [Tylenol Tablet] 325 - 650 mg PO Q4H PRN PRN #30 tab PRN Reason: Pain Score 1-3/10 Transmission Status: Pending to [facility] [id number] ALPRAZolam [Xanax] 0.5 mg PO TID #30 tablet Transmission Status: Sent to [facility] [id number] Please Follow Up With: Marina Andrade MD When: in 2 weeks or sooner if needed. [phone] Primary Care Physician: Care Physician,No Primary [Primary Care Provider] - Test Results: Test results from this visit will be discussed in further detail at your follow- up appointment, if applicable.
[2020-02-17 14:57] LABS: Absolute Lymphocyte Count 1.17 X10^3/uL (0.83-4.51); Absolute Neutrophil Count 11.3 X10^3/uL (2.0-7.7); Basophil# 0.04 X10^3/uL; Basophil% 0.3 % (0-1); Eosinophil# 0.12 X10^3/uL; Eosinophils% 0.9 % (0-5); Hemoglobin 9.4 g/dL (12.0-15.0); Lymphocyte # 1.17 X10^3/ul (4.0); Lymphocyte % 8.6 % (19-41); Mean Corp Hgb Conc 32.4 g/dL (32-36); Mean Corpuscular Hgb 28.1 pg (27.0-32.0); Mean Corpuscular Volume 86.8 fL (81-99); Mean Platelet Vol. 9.7 fl (6.2-12.0); Monocyte# 0.86 X10^3/uL; Monocyte% 6.3 % (0-10); NRBC Flagged by Analyzer 0 % (0-5); Neutrophil # 11.28 X10^3/uL (2.7-7.7); Neutrophil % 83.3 % (47-70); Platelet Count 303 K/mm3 (150-450); RBC Distribution Width CV 13.3 % (11.6-14.6); RBC Distribution Width SD 41.1 fl (35.1-43.9); Red Blood Count 3.34 M/mm3 (4.2-5.4); White Blood Count 13.6 K/mm3 (4.4-11.0)
--- NOTE | 2020-02-17 17:59 | ED.RN ---
1440 (Late Entry) epidural catheter removed. blue tip intact. bandaid and 2x2 applied. pt tolerated well
--- NOTE | 2020-02-17 18:27 | NURSING ---
1645 (late entry) infants weight 363 grams, 10 inches long, head circumference 17 cm
--- NOTE | 2020-02-18 | PLAC_PTH ---
PATIENT: RAVEN JUAREZ LOC: [facility] U#:[id number] AGE/SX: 29/F ROOM: WP021 RE02/16/[address]: Smita Shabazz CNM : 1990 BED: 1 DIS: 02/17/2020 SPEC #: [id number] RECD: 02/18/20 13:18 STATUS: ARNULFO REJosh #: [id number] REX: 02/18/20 00:[address]: Smita Shabazz DEPT: SURGICAL PATHOLOGY RECD BY: Atif Andujar ENTERED: 02/18/20 13:19 SP TYPE: PLACENTA OTHR DR: No Primary Care Phys Tissues: Placenta, NOS Procedures: Surgery Specimen Level V HEADER OPERATION: Vaginal delivery PRE-OP DIAGNOSIS: demise TISSUE SUBMITTED: Placenta MICROSCOPIC DIAGNOSIS James, 21-week placenta (154 gm): Umbilical cord - trivascular with no inflammation. Placental membranes - marked acute deciduitis. Placental disc - organizing intraparenchymal hemorrhage, mild acute vasculitis of superficial placental vessels and acute deciduitis. AM:vijay 02/20/20 MICROSCOPIC DESCRIPTION Slides are reviewed. GROSS DESCRIPTION SPECIMEN: PLACENTA / CLINICAL INFORMATION: A. Weight: Not noted B. Gestational Age: 21 weeks C. Sex: Female PLACENTAL WEIGHT (POST FIXATION): 154 gm PLACENTAL DIMENSIONS: 12 x 11 x 2.3 cm PLACENTAL SHAPE: Usual ovoid PLACENTAL WEIGHT FOR GESTATIONAL AGE: Within 10-99th percentile MEMBRANES - Present A. Insertion: Marginal B. Site of rupture from edge: At edge of placental disc C. Color of membrane: Chandler-brooks D. Abnormalities: None UMBILICAL CORD - Present A. Color: Chandler-brooks B. Insertion: Near central C. Length: 18 cm D. Diameter: 0.8 cm E. Number of vessels: Three F. Abnormalities: None PLACENTAL DISC - Present A. Color of surface: Chandler-brooks B. surface abnormalities: None C. Maternal cotyledons: Intact with minimal tears D. Attached retro placental clot: No clot E. Cut surface: Dark red and spongy F. Lesions: Serial sections reveal an organizing blood clot measuring 2 cm in greatest dimension and a light chandler lesion measuring 1 cm in greatest dimension. G. Separate clot: Absent SECTIONS SUBMITTED: 1. Umbilical cord ( end inked) 2. Umbilical cord, placental end 3. Membrane roll, blood clot 4. Placental disc, and maternal surfaces, lesion 5. Placental disc, and maternal surfaces 6. Placental disc, and maternal surfaces AM:vijay 02/19/20 TC:3 CPT: 07006 ADDENDUM ADDENDUM ADDENDUM ADDENDUM ADDENDUM ADDENDUM ADDENDUM ADDENDUM ADDENDUM 03/04/2020 09:37 ADDENDUM 03/04/2020 09:37 ADDENDUM 03/04/2020 09:37 ADDENDUM 03/04/2020 09:37 ADDENDUM 03/04/2020 09:37 ANORA MICROARRAY CHROMOSOME ANALYSIS WITH PARENTAL SUPPORT RESULT: Normal female MICROARRAY RESULT: arr(1-22,X)x2 CLINICAL INTERPRETATION: Normal female result. Maternal cell contamination has been ruled out. Please see complete report in e-chart or EMR
[2020-02-20 12:51] LABS: Pathology Specimen OB SEE PATHOLOGY REPORT
== END 2020-02-17 19:00 | disposition home or self-care (01) | DRG 805 ==
LOC: WPOUT 13:26 → WP 13:26
PROVIDERS: Obstetrics & Gynecology; Admitting Provider Advanced Practice Midwife; Referring Provider Advanced Practice Midwife; Visit Provider Advanced Practice Midwife
DX: O36.4XX0 Maternal care for intrauterine death, not applicable or unspecified (principal); O60.12X0 Preterm labor second trimester with preterm delivery second trimester, not applicable or unspecified; Z37.1 Single stillbirth; O10.92 Unspecified pre-existing hypertension complicating childbirth; O99.214 Obesity complicating childbirth; E66.9 Obesity, unspecified; Z3A.21 21 weeks gestation of pregnancy
CPT/HCPCS: 59050; 76815; 80053; 85025; 85461; 85610; 85730; 86850; 86900; 86901; 88307; 90384; 99218; J7120; A4216; G0378; J2405; J2790

== ENCOUNTER 2020-02-19 19:11 | Emergency (ER) | payer SELFPAY ==
[2020-02-16 12:39] VITALS: BMI 37.4
[2020-02-19 19:12] VITALS: BP 134/84; PULSE 105; RESP 20; TEMP 37.9; O2SAT 96; BMI 37.1
--- NOTE | 2020-02-19 20:00 | ED.VISSUMM ---
- ER Visit Summary Date of Service: 02/19/20 Chief Complaint: Fever History of Present Illness: The patient is a 29 F That 2 days ago had a stillbirth at 21 weeks. Today she developed fever today of one 101.9 at home. No nausea, vomiting or diarrhea. No dysuria. Just mild abd cramping. No significant vaginal discharge or foul odor. Reportedly delivered the placenta after the stillbirth. And did not need any D&C. She denies any headache. No back pain. No cough or shortness of breath. No rashes. Physical Examination: Young female no acute distress vital signs stable with a low-grade temperature 100.2. She has been taking Tylenol Motrin at home. Last dose was Motrin 2 hours ago. HEENT exam unremarkable. Neck nontender no lymphadenopathy. Lungs clear to auscultation bilaterally. Heart regular rhythm rate about 100 no murmur. Abdomen soft. Nontender nondistended. Normal bowel sounds no peritoneal signs. No localizing tenderness. Right upper and right lower quadrant unremarkable. Suprapubic palpation shows no significant pelvic tenderness. Extremities moves all 4. Neurologically she is awake alert with no focal motor deficits. Skin unremarkable. Very mild fungal rash in her left armpit. No abscess. Back nontender. Neurologically she is awake alert with no focal motor deficits. Test Results: Normal white count 9 hemoglobin 9.6 which is her baseline secondary to her . No bands. Chemistries normal normal creatinine gap. UA contaminated specimen no nitrates rare bacteria 25-50 white cells greater than 100 reds but 50-100 epithelial cells she is having no urinary symptoms I am not going to treat this as a UTI. I will send urine for culture even though this is very contaminated specimen. Chest x-ray normal read by myself. Normal cardiac silhouette. No infiltrate. No signs of COVID. Emergency Department Course and Treatment: Patient treated with Tylenol for fever. IV fluids. Work-up for infectious etiology. Clinically this does not appear to be a septic or endometritis. Repeat exam doing well at 2138. Discussed at length with both her and her . Her abdomen is benign. Currently she is afebrile to the Tylenol. She is feeling improved. We went over all the test results. I did discuss with Dr. Tate MANAGER DECISION SUPPORT on-call who also did the patient stillbirth delivery. She will follow-up with her office tomorrow. Treatment Plan: Follow-up with your MANAGER DECISION SUPPORT tomorrow. Plenty of fluids and rest. Alternate Tylenol Motrin for fever. Return if feeling worse. Disposition: Discharge Impression: Acute fever Viral syndrome Status post stillbirth at 21 weeks. This note was generated with BriefCam dictation software. It may contain incorrect words, spelling, and punctuation that were not noted in review of the chart prior to signing ED Disposition - Plan for ED Patient: Disposition: Home or Assisted Living Instructions: ED FUO Adult, ED Fever Control (Adult), ED Viral Syndrome Referrals: Marina Andrade MD [STAFF PHYSICIAN] - 1 Day Additional Instructions: Fluids and rest. Alternate Tylenol and Motrin for fever. Follow-up with your MANAGER DECISION SUPPORT's office tomorrow. I did speak to Dr. Karen boogie. Call and let them know how you are doing tomorrow. Return if you are feeling a lot worse.
[2020-02-19 20:13] LABS: Absolute Lymphocyte Count 0.66 X10^3/uL (0.83-4.51); Absolute Neutrophil Count 7.6 X10^3/uL (2.0-7.7); Basophil# 0.03 X10^3/uL; Basophil% 0.3 % (0-1); Eosinophil# 0.18 X10^3/uL; Hematocrit 29.7 % (37-47); Hemoglobin 9.6 g/dL (12.0-15.0); Lymphocyte # 0.66 X10^3/ul (4.0); Lymphocyte % 7.2 % (19-41); Mean Corp Hgb Conc 32.3 g/dL (32-36); Mean Corpuscular Volume 86.6 fL (81-99); Mean Platelet Vol. 9.4 fl (6.2-12.0); Monocyte# 0.55 X10^3/uL; NRBC Flagged by Analyzer 0 % (0-5); Neutrophil # 7.64 X10^3/uL (2.7-7.7); Neutrophil % 83.4 % (47-70); Platelet Count 378 K/mm3 (150-450); RBC Distribution Width CV 12.9 % (11.6-14.6); RBC Distribution Width SD 40.7 fl (35.1-43.9); Red Blood Count 3.43 M/mm3 (4.2-5.4); White Blood Count 9.2 K/mm3 (4.4-11.0)
[2020-02-19 20:27] LABS: Anion Gap 7 (5-15); BUN 9 mg/dL (7-18); BUN/Creat Ratio 12.2 RATIO (10-20); Calcium,Total 8.8 mg/dL (8.5-10.1); Chloride 107 mmol/L (98-107); Creatinine, Serum 0.74 mg/dL (0.55-1.02); EST Glomerular Filtration Rate 99 mL/min (>60); Est Glom Filt Rate - Afr Amer 120 mL/min (>60); Estimated Creatinine Clearance 97.74 ml/min; Glucose 100 mg/dL (74-106); Potassium 3.7 mmol/L (3.5-5.1); Sodium Level 140 mmol/L (136-145)
[2020-02-19] MEDS: 0.9% Normal Saline 1,000 ML 1000 ML IV (20:32)
[2020-02-19] MEDS: Acetaminophen 500 MG Tablet 1000 MG PO (20:33)
--- NOTE | 2020-02-19 20:40 | RAD_ITS ---
STUDY: X-RAY CHEST REASON FOR EXAM: Female, 29 years old. pt had 21 week stillbirth on sunday. fever started today. TECHNIQUE: 3 PA and lateral views of the chest. COMPARISON: None. FINDINGS: The lungs are clear and expanded. There is no demonstrated pleural abnormality. Normal size heart. Normal mediastinum and evette. Normal visualized pulmonary arteries. Normal visualized aortic arch and descending thoracic aorta. Normal visualized thoracic spine. Normal visualized ribs, clavicles, and shoulders. There is no demonstrated abnormality of the visualized soft tissue structures of the upper abdomen. RAD/Chest PA and Lateral IMPRESSION: Normal x-ray examination of the chest. Electronically Signed: Charanjit Pedroza MD at 21:29 EDT , Service support ,
[2020-02-19 20:41] LABS: Mucous, Urine 0 SEEN /hpf (<or=2+)
[2020-02-19 20:44] LABS: Color, Urine Amber (Yellow); Glucose, Dipstick Normal (Normal); Ketone-Dipstick 5 mg/dl (Negative); Leukocyte Esterase-Dipstick 500 /ul (Negative); Nitrite-Dipstick Negative (Negative); Occult Blood-Urine 250 /ul (Negative); Protein-Dipstick 100 mg/dl (Negative); Urine Clarity Cloudy (Clear); Urine Urobilinogen 8 mg/dl (Normal)
[2020-02-19 20:51] LABS: Urine Bilirubin Dipstick 1 mg/dL (Negative)
[2020-02-19 21:09] LABS: Red Blood Cells-Urine > 100 SEEN /hpf (0-5); White Blood Cells 25-50 SEEN /hpf (0-5)
[2020-02-19 21:10] LABS: Bacteria RARE /hpf (None Seen); Squamous Epithelial Cells - UA 50-100 SEEN /hpf (5-10)
[2020-02-19 21:24] VITALS: BP 134/80; PULSE 82; RESP 14; TEMP 37.1; O2SAT 99
--- NOTE | 2020-02-19 21:43 | ED.DEP ---
ED Disposition - Plan for ED Patient: Disposition: Home or Assisted Living Instructions: ED FUO Adult, ED Fever Control (Adult), ED Viral Syndrome Referrals: Marina Andrade MD [STAFF PHYSICIAN] - 1 Day Additional Instructions: Fluids and rest. Alternate Tylenol and Motrin for fever. Follow-up with your STAFF NURSE ANESTHETIST's office tomorrow. I did speak to Dr. Karen boogie. Call and let them know how you are doing tomorrow. Return if you are feeling a lot worse.
[2020-02-19 22:10] VITALS: BP 134/80
== END 2020-02-19 22:11 | disposition home or self-care (01) ==
PROVIDERS: Emergency Provider Emergency Medicine
DX: O98.53 Other viral diseases complicating the puerperium (principal); B34.9 Viral infection, unspecified; O86.4 Pyrexia of unknown origin following delivery; O10.93 Unspecified pre-existing hypertension complicating the puerperium; Z79.899 Other long term (current) drug therapy
CPT/HCPCS: 71046; 80048; 81001; 85025; 87086; 87088; 96360; 99282; J7030; A4216

== ENCOUNTER 2020-05-03 09:12 | Emergency (ER) | payer SELFPAY ==
[2020-05-03 09:12] VITALS: BP 171/116; PULSE 105; RESP 16; TEMP 36.9; O2SAT 98; BMI 36.8
--- NOTE | 2020-05-03 09:18 | ED.DCSUM_ITS ---
History of Present Illness Chief Complaint: Back Informant: Patient Narrative: 30-year-old female presenting with back pain which is been ongoing for a couple of weeks. She states that she is always had sciatica on the right side due to having a shorter leg. This time it is been worse. She has been trying ice and heat. She is also gone to the chiropractor a couple of times which did initially start relieving her however now she is having worsening pain. She is able to ambulate but she states that hurts from her right gluteal region down the lateral side of her leg. She has no loss of bladder or bowel control. No urinary retention. No saddle paresthesia. - Past Medical History (1) Obesity Status: Chronic (2) Chronic hypertension affecting Status: Chronic Past Medical History - Allergies and Home Meds Allergies/Adverse Reactions: Allergies nickel Allergy (Verified 05/03/20 09:16) Rash Primary Care Physician: Alivia Magaña Clii [Other] Care Physician,No Primary [Primary Care Provider] - Prior records reviewed: Yes Past Medical History: - - Reviewed and problem list Surgical History: noncontributory Lives: Spouse/ Significant Other Smoking Status: Current every day smoker Alcohol: None Drugs: None Review of Systems General: Denies: Chills, Fever, Sweats Eyes: Denies: Visual changes - bilaterally, Diplopia ENT: Denies: Rhinorrhea, Sore throat Cardiovascular: Denies: Chest pain, Palpitations Respiratory: Denies: Dyspnea, Cough, Dyspnea on exertion Gastrointestinal: Denies: Abdominal pain, Nausea, Vomiting, Diarrhea, Melena, Hematochezia Genitourinary: Denies: Dysuria, Hematuria, Frequency Musculoskeletal: Reports: Back pain, Extremity Pain - Right gluteal and right upper leg pain Skin: Denies: Rash, Abscess Neurological: Denies: Headache, Weakness Psych: Reports: Depression. Denies: Suicidal thoughts, Suicidal ideations Physical Exam Vital Signs/Narrative: Vital Signs Temp Pulse Resp BP Pulse Ox 05/03/20 09:12 98.4 F 105 H 16 171/116 H 98 Inital Vital Signs reviewed: Yes General: Obese, No Acute Distress Head: Normocephalic, Atraumatic Eyes: Perrl, EOMI ENT: Moist mucous membranes, No rhinorrhea Cardiovascular: Regular rate, Regular rhythm Respiratory: No distress, CTA bilaterally, Chest nontender Abdomen: Soft, Nontender, Nondistended Back: Negative for: Spinal tenderness - Mild right lumbar paraspinal muscular tenderness. Pain is elicited with twisting of the lower back. Extremities: Negative for: Nontender, No edema Skin: Normal color, No rash Neurological: Alert, Oriented x3 Psychological: Tearful Diagnostic/Tx/Re-eval Clinical Impression(s) from Imaging Studies Lumbar Spine X-Ray 05/03/20 09:29 IMPRESSION: Normal x-ray examination of the lumbar spine. Electronically Signed: Ham Estrella, at 10:29 EDT , Service support , - Medical Decision Making 30-year-old female presenting with back pain and sciatic pain. This is been going on for a couple of weeks. She has had trouble getting it under control. She has had a couple of visits with a chiropractor which gives her some relief of pain for a couple of days at a time. She has no symptoms of cauda equina syndrome. X-ray of the lumbar spine is negative. She was treated with morphine and initially had improvement in her pain she was also given a shot of Toradol and 1 dose of prednisone. We did attempt to ambulate the patient with a walker but she states that it hurts to swing her leg, however she is able to ambulate with the assistance of her by holding onto his arm. She states that she has a walker at home if she needs one. I will give her Percocet and muscle relaxers but I did warn her not to take them at the same time so she can see which one works the best and that she is not over sedated. Her states that s we will assist and monitor her. Patient does not have a PCP or health insurance so [facility] She was given instructions on stretching, alternating ice and heat. Patient is discharged home in stable condition. Impression: Lumbago with sciatica ED Disposition - Plan for ED Patient: Disposition: Home or Assisted Living Instructions: ED LUMBAR RADICULOPATHY, Understanding Sciatica Prescriptions: Cyclobenzaprine HCl 10 mg PO Q8H PRN PRN #20 tab PRN Reason: pain Prescription Printed Oxycodone HCl/Acetaminophen [Percocet 5/325] 1 tab PO Q6H PRN PRN 3 Days #12 tab PRN Reason: Pain Prescription Printed predniSONE tablet 60 mg PO DAILY #15 tab Prescription Printed Referrals: Care Physician,No Primary [Primary Care Provider] - Alivia Smallwood [Other]
--- NOTE | 2020-05-03 09:29 | RAD_ITS ---
STUDY: X-RAY - LUMBAR SPINE REASON FOR EXAM: Female, 30 years old. BACK PAIN, RIGHT SIDE/RIGHT LEG PAIN -- DIFFICULTY AMBULATING, UNCONTROLLABLE GAS, DENIES LOSS OF BOWEL OR BLADDER FUNCTION TECHNIQUE: 3 view(s) of the lumbar spine were obtained. COMPARISON: None FINDINGS: Normal lumbar lordosis. There is no substantial scoliosis. There is a normal alignment of the vertebrae. Normal vertebral bodies and endplates. Normal disc space heights. The soft tissue structures are unremarkable. RAD/Lumbar Spine 2 or 3 Views IMPRESSION: Normal x-ray examination of the lumbar spine. Electronically Signed: Ham Estrella, at 10:29 EDT , Service support ,
[2020-05-03] MEDS: predniSONE 20 MG Tablet 60 MG PO (09:43)
[2020-05-03] MEDS: Ondansetron ODT 4 MG Tablet 8 MG PO (09:43)
[2020-05-03] MEDS: Ketorolac 15 MG/ML Vial IM (09:44)
[2020-05-03] MEDS: morphine 8 MG/ML Syringe 6 MG IM (09:44)
[2020-05-03 09:53] VITALS: RESP 16
[2020-05-03] MEDS: Mag Hydrox/Al Hydrox/Simeth 30 ML UDC PO (11:01)
== END 2020-05-03 11:41 | disposition home or self-care (01) ==
LOC: ED 10:32
PROVIDERS: Emergency Provider Student in an Organized Health Care Education/Training Program
DX: M54.41 Lumbago with sciatica, right side (principal); E66.9 Obesity, unspecified; F17.200 Nicotine dependence, unspecified, uncomplicated
CPT/HCPCS: 72100; 96372; 99283

== ENCOUNTER → 2022-01-20 | Outpatient (CLI) | payer OTHER, SELFPAY ==
[2022-01-20 15:07] LABS: Fetal Fibronectin Negative
== END | disposition home or self-care (01) ==
PROVIDERS: Visit Provider Obstetrics & Gynecology
DX: O09.93 Supervision of high risk pregnancy, unspecified, third trimester (principal); Z3A.30 30 weeks gestation of pregnancy
CPT/HCPCS: 82731

== ENCOUNTER 2022-03-07 08:12 | Emergency (ER) | payer OTHER, SELFPAY ==
[2022-03-07 08:13] VITALS: BP 159/114; PULSE 90; RESP 20; TEMP 36.6; O2SAT 98; BMI 37.3
--- NOTE | 2022-03-07 08:50 | EKG12_ITS ---
Test Reason : Blood Pressure : / mmHG Vent. Rate : 076 BPM Atrial Rate : 076 BPM P-R Int : 166 ms QRS Dur : 072 ms QT Int : 350 ms P-R-T Axes : 035 032 019 degrees QTc Int : 393 ms Normal sinus rhythm Normal ECG Confirmed by BRYANNA WONG, GIFTY ([id number]), mapping editor CLIFFORD RAYGOZA ([id number]) on 03/09/2022 12:51:07 PM Referred By: Ivette Confirmed By:GIFTY GOULD MD
[2022-03-07 08:51] VITALS: O2SAT 99
--- NOTE | 2022-03-07 08:53 | RAD_ITS ---
STUDY: X-RAY CHEST REASON FOR EXAM: Female, 31 years old. Chest pain TECHNIQUE: Single AP portable view of the chest. COMPARISON: Comparison is made with prior study dated 02/19/2020. FINDINGS: EKG electrodes are seen The lungs are clear and expanded. There is no demonstrated pleural abnormality. Normal size heart. Normal mediastinum and evette. Normal visualized pulmonary arteries. Normal visualized aortic arch and descending thoracic aorta. Normal visualized thoracic spine. Normal visualized ribs, clavicles, and shoulders. There is no demonstrated abnormality of the visualized soft tissue structures of the upper abdomen. RAD/Chest 1 View (Portable) IMPRESSION: Normal x-ray examination of the chest. Electronically Signed: Ham Estrella MD at 9:12 EDT ,
[2022-03-07 09:02] LABS: Absolute Neutrophil Count 6.1 X10^3/uL (2.0-7.7); Basophil# 0.06 X10^3/uL; Basophil% 0.7 % (0-1); Eosinophil# 0.38 X10^3/uL; Eosinophils% 4.5 % (0-5); Hemoglobin 10.8 g/dL (12.0-15.0); Lymphocyte % 16.5 % (19-41); Mean Corp Hgb Conc 31.8 g/dL (32-36); Mean Corpuscular Hgb 28.1 pg (27.0-32.0); Mean Corpuscular Volume 88.3 fL (81-99); Monocyte# 0.49 X10^3/uL; Monocyte% 5.8 % (0-10); NRBC Flagged by Analyzer 0 % (0-5); Neutrophil # 6.07 X10^3/uL (2.7-7.7); Neutrophil % 71.4 % (47-70); Platelet Count 430 K/mm3 (150-450); RBC Distribution Width CV 14.3 % (11.6-14.6); RBC Distribution Width SD 45.7 fl (35.1-43.9); Red Blood Count 3.85 M/mm3 (4.2-5.4); White Blood Count 8.5 K/mm3 (4.4-11.0)
[2022-03-07 09:18] VITALS: BP 122/77; PULSE 80; RESP 21; O2SAT 97
[2022-03-07 09:18] LABS: D-Dimer Quantitative (DVT/PE) 1.67 FEU/ug/m (0.27-0.49)
--- NOTE | 2022-03-07 09:38 | CT_ITS ---
STUDY: CTA CHEST REASON FOR EXAM: Female, 31 years old. Chest pain, elevated d-dimer. 02/16/22 RADIATION DOSAGE (If Supplied By Facility): CTDIvol = ( 11.47 ) mGy, DLP = ( 521.94 ) mGycm TECHNIQUE: The examination was performed with the intravenous administration of IV 100mL Isovue-370. Post-processing of the angiographic images was performed, with multiplanar reformation and 3D reconstruction. Individualized dose optimization techniques were used for this CT. COMPARISON: Comparison is made with prior chest radiograph done earlier today. FINDINGS: Normal enhancement of the main pulmonary artery and right and left pulmonary arteries. Normal enhancement of the bilateral peripheral pulmonary arteries. There is no demonstrated pulmonary embolism. Normal thoracic aorta and visualized great vessels. There is no demonstrated aortic dissection. Normal heart and pericardium. Normal mediastinum. Normal hilar regions. Normal visualized trachea and bronchi. The lungs are well expanded. Normal pulmonary parenchyma. Normal pleura. Normal chest wall structures. Normal osseous structures. 1.1 cm fat-containing nodule in the left adrenal gland suggestive of a adrenal adenoma. Fatty infiltration of the liver. CT/CTA Chest W/WO Contrast IMPRESSION: Normal CTA chest examination, without a demonstrated pulmonary embolism or arterial dissection. Electronically Signed: Ham Estrella MD at 10:15 EDT ,
[2022-03-07 09:41] LABS: Anion Gap 6 (5-15); BUN 14 mg/dL (7-18); BUN/Creat Ratio 17.4 RATIO (10-20); Calcium,Total 9.7 mg/dL (8.5-10.1); Chloride 109 mmol/L (98-107); EST Glomerular Filtration Rate 89 mL/min (>60); Est Glom Filt Rate - Afr Amer 107 mL/min (>60); Estimated Creatinine Clearance 88.79 ml/min; Glucose 82 mg/dL (74-106); Potassium 3.8 mmol/L (3.5-5.1); Sodium Level 141 mmol/L (136-145); Troponin-I HS (w/2H Reflex) 4 pg/mL (3.0-54.0)
--- NOTE | 2022-03-07 10:55 | EDS_ITS ---
HPI History of Present Illness Chief Complaint: Chest Pain Informant: patient Onset/Context/Timing Onset: Yesterday Activity at onset: gradual Timing: Waxes and wanes Quality: Positive for Pressure Location: Substernal Current Severity: Mild Maximum Severity: Moderate Narrative Narrative: Patient presents secondary to chest pain. She points to the lower sternal area and states that she has had pressure there has been waxing and waning since yesterday. She had a last week. No known family history of heart disease. She does have family history of blood clots. [facility] Medical History Anxiety Depression Hypertension Home Medications labetalol 100 mg tablet 100 mg PO BID 02/16/20 [History Last Taken 02/16/20 09:30 100 mg] acetaminophen 325 mg tablet 325 - 650 mg PO Q4H PRN PRN Pain Score 1-3/10 #30 tabs 02/17/20 [Rx Last Taken Unknown] ibuprofen 600 mg tablet 600 mg PO Q6H PRN PRN Pain Or Fever #60 tabs 02/17/20 [Rx Last Taken Unknown] docusate sodium 100 mg capsule 1 cap PO BID 03/07/22 [History Last Taken Unknown] sertraline 50 mg tablet 1 tab PO DAILY 03/07/22 [History Last Taken Unknown] Allergy/AdvReac Type Severity Reaction Status Date / Time nickel Allergy Rash Verified 03/07/22 08:15 Surgical History Hx of section Hx of cholecystectomy Social History Smoking Status: Former smoker ROS ROS ED Constitutional Constitutional ED: Denies chills or fever(s) Eyes Eyes: Denies change in vision or discharge from eye(s) ENT ENT ED: Denies discharge from eye(s), rhinorrhea or sore throat Cardiovascular Cardiovascular: Reports chest pain; Denies palpitations Respiratory/Chest Respiratory/Chest: Denies cough or dyspnea Gastrointestinal Gastrointestinal: Denies abdominal pain, diarrhea, nausea or vomiting Genitourinary Genitourinary ED: Denies difficulty urinating or dysuria Musculoskeletal Musculoskeletal: Denies back pain or extremity pain Integumentary Denies Abrasions or rash Neurologic Neurologic: Denies headache(s) or weakness Psychiatric Psychiatric: Denies anxiety or depression Allergic/Immunologic Allergic/Immunologic ED: Denies lip swelling or urticaria EXAM Physical Exam Narrative Exam Narrative: Patient sitting upright in bed no acute distress. Const Vital Signs: 03/07/22 08:13 03/07/22 08:24 03/07/22 08:51 Temperature 98 F Temperature Source Temporal Pulse Rate 90 Respiratory Rate 20 H Respiratory Pattern Normal Blood Pressure 159/114 H Blood Pressure Mean 129 Pulse Ox 98 99 Oxygen Delivery Method Room Air Room Air 03/07/22 09:18 03/07/22 10:57 Temperature Temperature Source Pulse Rate 80 79 Respiratory Rate 21 H 16 Respiratory Pattern Blood Pressure 122/77 H 141/90 H Blood Pressure Mean 92 Pulse Ox 97 96 Oxygen Delivery Method Room Air Positive well nourished and well developed General Appearance ED: well developed HEENT Reports normocephalic and head/scalp atraumatic Eyes PERRL and EOMs intact bilaterally Neck supple Chest Wall inspection of chest normal and palpation of chest normal Resp normal respiratory effort and clear to auscultation bilaterally Cardio regular rate and regular rhythm GI normal to inspection, nondistended, normoactive bowel sounds Palpation: soft Extremity normal to inspection Neuro oriented x3 and no sensory deficits noted Sensorium / Orientation: alert Motor Exam: strength 5/5 throughout Psych mental status grossly normal Skin no rashes or lesions noted Heart Score History: Slightly/Non-Suspicious ECG: Normal Age: </= 45 years Risk Factors: 1 or 2 Risk Factors Troponin: </= Normal Limit Score: 1 MDM MDM MDM Narrative Medical decision making narrative: EKG, chest x-ray, lab work obtained. Lab Data Attestation: I reviewed the patient's lab results. Labs: Laboratory Results - last 24 hr 03/07/22 03/07/22 03/07/22 08:22 08:22 08:22 WBC 8.5 RBC 3.85 L Hgb 10.8 L Hct 34.0 L MCV 88.3 MCH 28.1 MCHC 31.8 L RDW Std Deviation 45.7 H RDW Coeff of Praneeth 14.3 Plt Count 430 MPV 9.0 Immature Gran % (Auto) 1.100 H Neut % (Auto) 71.4 H Lymph % (Auto) 16.[address] [place] % (Auto) 5.8 Eos % (Auto) 4.5 Baso % (Auto) 0.7 Absolute Neuts (auto) 6.1 Absolute Lymphs (auto) 1.40 Nucleated RBC % 0 D-Dimer Quant (PE/DVT) 1.67 H* Sodium 141 Potassium 3.8 Chloride 109 H Carbon Dioxide 26.0 Anion Gap 6 BUN 14 Creatinine 0.80 Estim Creat Clear Calc 88.79 Est GFR (MDRD) Af Amer 107 Est GFR (MDRD) Non-Af 89 BUN/Creatinine Ratio 17.4 Glucose 82 Calcium 9.7 Troponin I High Sens 4 Radiography Chest X-Ray - ED: 1 View, Read by ED Physician, Normal, Heart, Lungs and Mediastinum Diagnostic Testing: Clinical Impression(s) from Imaging Studies Chest X-Ray 03/07/22 08:53 IMPRESSION: Normal x-ray examination of the chest. Electronically Signed: Ham Estrella MD at 9:12 EDT , Chest CTA 03/07/22 09:38 IMPRESSION: Normal CTA chest examination, without a demonstrated pulmonary embolism or arterial dissection. Electronically Signed: Ham Estrella MD at 10:15 EDT , EKG Initial EKG: Attestation: I personally reviewed and interpreted this EKG as follows: Interpretation: Sinus Rhythm (Sinus at 76 with no acute ischemia.) Treatment and Re-Evaluation Narrative: CBC significant for hemoglobin of 10.8 hematocrit of 34. Chemistry studies unremarkable. Troponin normal at 4. D-dimer elevated at 1.67. Chest x-ray per my interpretation shows no acute abnormalities. EKG reveals no ischemia. CTA of the chest is obtained and is unremarkable. Patient is reassured with these findings. She will be discharged home to continue supportive care. Return instructions provided. Discharge Plan Triage Chief Complaint: Chest Pain ED Provider: Shahrzad Steele Dx/Rx/DC Orders Clinical Impression: Chest pain Instructions: ED Chest Pain, Uncertain Cause Prescriptions: No Action labetalol 100 MG tablet 100 mg PO BID acetaminophen 325 MG tablet 325 - 650 mg PO Q4H PRN PRN (Reason: Pain Score 1-3/10) Qty: 30 0RF ibuprofen 600 MG tablet 600 mg PO Q6H PRN PRN (Reason: Pain Or Fever) Qty: 60 0RF docusate sodium 100 mg capsule 1 cap PO BID sertraline 50 mg tablet 1 tab PO DAILY Primary Care Provider: Care Physician,No Primary Referrals: Werner Doherty MD [Med Staff - Project [employer] Manager] - As soon as possible Care Physician,No Primary [Primary Care Provider] - Activity Restrictions/Additional Instructions: As discussed, your work-up for chest pain today is unremarkable. There is no evidence of heart damage. Your lungs are normal with no evidence of blood clot. Disposition Disposition: Home, Self Care Discharge Date/Time: 03/07/22 11:04
[2022-03-07 10:56] LABS: Reflex Troponin-HS? (from REC) Y
[2022-03-07 10:57] VITALS: BP 141/90; PULSE 79; RESP 16; O2SAT 96
== END 2022-03-07 11:04 | disposition home or self-care (01) ==
PROVIDERS: Emergency Provider Emergency Medicine; Visit Provider Emergency Medicine
DX: R07.9 Chest pain, unspecified (principal); I10 Essential (primary) hypertension; Z87.891 Personal history of nicotine dependence
CPT/HCPCS: 71045; 71275; 80048; 84484; 85025; 85379; 93005; 99284; Q9967; A4216